=== PATIENT | female | born 1990 | race African-American/Black ===

== ENCOUNTER 2018-09-27 12:51 | Inpatient (IN) | payer OTHER ==
[2018-09-27 13:13] VITALS: BMI 27.4
--- NOTE | 2018-09-27 15:32 | HP ---
CIWA Score Nausea/Vomitin-No Nausea/No Vomiting Muscle Tremors: 4-Moderate,w/Arms Extend Anxiety: 3 Agitation: 4-Moderately Restless Paroxysmal Sweats: 3 Orientation: 0-Oriented Tacttile Disturbances: 0-None Auditory Disturbances: 0-None Visual Disturbances: 0-None Headache: 0-None Present CIWA-Ar Total Score: 14 - Admission Criteria OASAS Guidelines: Admission for Medically Managed Detox: Requires at least one of the followin. CIWA greater than 12 2. Seizures within the past 24 hours 3. Delirium tremens within the past 24 hours 4. Hallucinations within the past 24 hours 5. Acute intervention needed for co occurring medical disorder 6. Acute intervention needed for co occurring psychiatric disorder 7. Severe withdrawal that cannot be handled at a lower level of care (continued vomiting, continued diarrhea, abnormal vital signs) requiring intravenous medication and/or fluids 8. Admission ROS BHS - HPI Chief Complaint: I need to get my life back and stay sober. Allergies/Adverse Reactions: Allergies Allergy/AdvReac Type Severity Reaction Status Date / Time No Known Allergies Allergy Verified 09/27/18 15:25 History of Present Illness: pt is a 28yr old male/transgender individual seeking detox from alcohol dependence. Exam Limitations: Other (transgender) - Ebola screening Have you traveled outside of the country in the last 21 days: No Have you had contact with anyone from an Ebola affected area: No Have you been sick,other than usual withdrawal symptoms: No Do you have a fever: No - Review of Systems Constitutional: Loss of Appetite, Changes in sleep, Unintentional Wgt. Loss, Unexplained wgt Loss EENT: reports: No Symptoms Reported Respiratory: reports: No Symptoms reported Cardiac: reports: Syncope (alcohol related blackouts) GI: reports: Diarrhea, Poor Fluid Intake : reports: No Symptoms Reported Musculoskeletal: reports: No Symptoms Reported Integumentary: reports: No Symptoms Reported Neuro: reports: Tingling, Tremors Endocrine: reports: Flushing, Intolerance to Cold, Intolerance to Heat Hematology: reports: No Symptoms Reported Psychiatric: reports: Judgement Intact, Mood/Affect Appropiate, Orientated x3, Agitated, Anxious Other Systems: Reviewed and Negative Patient History - Patient Medical History Hx Anemia: No Hx Asthma: No Hx Chronic Obstructive Pulmonary Disease (COPD): No Hx Cancer: No Hx Cardiac Disorders: No Hx Congestive Heart Failure: No Hx Hypertension: No Hx Hypercholesterolemia: No Hx Pacemaker: No HX Cerebrovascular Accident: No Hx Seizures: No Hx Dementia: No Hx Diabetes: No Hx Gastrointestinal Disorders: No Hx Liver Disease: No Hx Genitourinary Disorders: No Hx Sexually Transmitted Disorders: No Hx Renal Disease (ESRD): No Hx Thyroid Disease: No Hx Human Immunodeficiency Virus (HIV): No (negative) Hx Hepatitis C: No (negative) Hx Depression: Yes (currently not on treatment) Hx Suicide Attempt: No Hx Bipolar Disorder: No Hx Schizophrenia: No Other Medical History: panic attack, anxiety - Patient Surgical History Past Surgical History: No Hx Neurologic Surgery: No Hx Cataract Extraction: No Hx Cardiac Surgery: No Hx Lung Surgery: No Hx Breast Surgery: No Hx Breast Biopsy: No Hx Abdominal Surgery: No Hx Appendectomy: No Hx Cholecystectomy: No Hx Genitourinary Surgery: No Hx Section: No Hx Orthopedic Surgery: No Anesthesia Reaction: No - PPD History Previous Implant?: Yes Documented Results: Negative w/o proof PPD to be Administered?: Yes - Reproductive History Patient is a Female of Child Bearing Age (11 -55 yrs old): No - Smoking Cessation Smoking history: Current every day smoker Have you smoked in the past 12 months: Yes Aproximately how many cigarettes per day: 10 Hx Chewing Tobacco Use: No Initiated information on smoking cessation: Yes 'Breaking Loose' booklet given: 09/27/18 - Substance & Tx. History Hx Alcohol Use: Yes Substance Use Type: Alcohol - Substances Abused Alcohol Route: Oral Frequency: Daily Amount used: 5 [place] Age of first use: 14 Date of Last Use: 09/27/18 Family Disease History - Family Disease History Family History: Denies Admission Physical Exam [facility] - Vital Signs Vital Signs: Vital Signs - 24 hr 09/27/18 13:11 Temperature 97.6 F Pulse Rate 110 H Respiratory 20 Rate Blood Pressure 144/93 - Physical General Appearance: Yes: Appropriately Dressed, Moderate Distress, Tremorous, Irritable, Sweating, Anxious HEENTM: Yes: Hearing grossly Normal, Normal Voice Respiratory: Yes: Lungs Clear, Normal Breath Sounds, No Respiratory Distress Neck: Yes: No masses,lesions,Nodules Breast: Yes: Within Normal Limits Cardiology: Yes: Regular Rhythm, Regular Rate, S1, S2 Abdominal: Yes: Normal Bowel Sounds, Non Tender, Soft Genitourinary: Yes: Within Normal Limits Back: Yes: Normal Inspection Musculoskeletal: Yes: Back pain Extremities: Yes: Normal Capillary Refill, Normal Inspection, Non-Tender, Tremors Neurological: Yes: Fully Oriented, Alert, Normal Response Integumentary: Yes: Normal Color, Diaphoresis Lymphatic: Yes: Within Normal Limits - Diagnostic (1) Alcohol dependence with uncomplicated withdrawal Current Visit: Yes Status: Chronic Cleared for Admission [facility] - Detox or Rehab [facility] Level of Care: Medically Managed Detox Regimen/Protocol: Librium [facility] Breath Alcohol Content Breath Alcohol Content: 0.270 Urine Drug Screen - Results Drug Screen Negative: Yes
[2018-09-27] MEDS ORDERED: IBUPROFEN 400 MG TABLET (FP) PO PRN (15:38)
[2018-09-27] MEDS ORDERED: P-EPHED 60MG/TRIPROLIDI 2.5MG TABLET PO PRN (15:38)
[2018-09-27] MEDS ORDERED: MAG HYDROX/AL HYDROX/SIMETH 30 ML UNIT-DOSE CUP PO PRN (15:38)
[2018-09-27] MEDS ORDERED: LOPERAMIDE HCL 2 MG CAPSULE PO PRN (15:38)
[2018-09-27] MEDS ORDERED: MENTHOL/PHENOL 1 EACH UD MM PRN (15:38)
[2018-09-27] MEDS ORDERED: NICOTINE POLACRILEX 4 MG GUM BC PRN (15:38)
[2018-09-27] MEDS ORDERED: guaiFENesin/D-METHORPHAN HB 10 ML UNIT-DOSE CUPS PO PRN (15:38)
[2018-09-27] MEDS ORDERED: hydrOXYzine PAMOATE 50 MG CAPSULE (FP) PO PRN (15:38)
[2018-09-27] MEDS ORDERED: chlordiazePOXIDE HCL 25 MG CAPSULE PO PRN (15:38)
[2018-09-27] MEDS ORDERED: MAGNESIUM HYDROX 2400MG/30ML ORAL SUSPENSION 30 ML CUP PO PRN (15:38)
[2018-09-27] MEDS ORDERED: chlordiazePOXIDE HCL 25 MG CAPSULE PO ONE (15:38)
[2018-09-27] MEDS ORDERED: ACETAMINOPHEN 325 MG TABLET (FP) PO PRN (15:38)
[2018-09-27] MEDS ORDERED: MAGNESIUM CITRATE 300 ML BOTTLE PO PRN (15:38)
[2018-09-27] MEDS: chlordiazePOXIDE HCL 25 MG CAPSULE PO SCH ×2 (17:27→22:37)
--- NOTE | 2018-09-27 17:53 | CONSULT ---
[facility] Psychiatric Consult - Data Date of interview: 09/27/18 Admission source: [facility] Identifying data: Readmission to [facility] for this 28 y/o transgender male seeking detoxification treatment, on , for alcohol dependence. Patient is isngle, without dependents, domiciled, unemployed and supported by relatives. Substance Abuse History: Discussed with patient. Confirmed current [facility] report : Smoking Cessation. Smoking history: Current every day smoker. Have you smoked in the past 12 months: Yes. Aproximately how many cigarettes per day: 10. Hx Chewing Tobacco Use: No. Initiated information on smoking cessation: Yes. ' Breaking Loose' booklet given: 09/27/18. - Substance & Tx. History. Hx Alcohol Use: Yes. Substance Use Type: Alcohol. - Substances Abused. Alcohol. Route: Oral. Frequency: Daily. Amount used: 5 [place]. Age of first use: 14. Date of Last Use: 09/27/18 Medical History: Patient endorses good general health. Psychiatric History: Patient reports a history of three psychiatric hospitalizations ([facility] [place] in [place] + [facility] in [place]). Diagnosed with Panic Disorder and MDD. Prescribed celexa 20 mg/day in the past but not adherent to the medication for months. No reported history of suicide attempts. Physical/Sexual Abuse/Trauma History: Patient denies. Additional Comment: Drug Screen is negative. Mental Status Exam - Mental Status Exam Alert and Oriented to: Time, Place, Person Cognitive Function: Good Patient Appearance: Well Groomed Mood: Nervous, Withdrawn Affect: Mood Congruent Patient Behavior: Fatigued, Cooperative Speech Pattern: Clear Voice Loudness: Normal Thought Process: Goal Oriented Thought Disorder: Not Present Hallucinations: Denies Suicidal Ideation: Denies Homicidal Ideation: Denies Insight/Judgement: Poor Sleep: Well Appetite: Good Gait/Station: Normal Psychiatric Findings - Problem List ([place] 1, 2,3) (1) Alcohol dependence with uncomplicated withdrawal Current Visit: Yes Status: Acute (2) Nicotine dependence Current Visit: Yes Status: Acute (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 On medication. - Initial Treatment Plan Initial Treatment Plan: Psychoeducation. Sleep hygiene. Detoxification in progress. AA meetings. Relapse prevention will be covered during group therapy and individual sessions. Patient insists on resuming citalopram. Celexa 10 mg po daily. Ordered. Side effects/benefits discussed with patient. Consent (verbal ) granted to . Observation.
[2018-09-27] MEDS ORDERED: MELATONIN 5 MG TABLETS PO PRN (22:00)
[2018-09-27] MEDS: THIAMINE HCL 100 MG TABLET (FP) PO SCH (22:37)
[2018-09-27 23:29] LABS: URINE APPEARANCE TURBID; URINE BILIRUBIN NEGATIVE (<2.0 mg/dL); URINE COLOR YELLOW; URINE GLUCOSE (UA) NEGATIVE (NEGATIVE); URINE KETONE NEGATIVE (NEGATIVE); URINE LEUK ESTERASE NEGATIVE (NEGATIVE); URINE NITRITE NEGATIVE (NEGATIVE); URINE PROTEIN 1+ (NEGATIVE)
[2018-09-28 00:30] LABS: AMORP URATES 2+ /hpf (NONE SEEN); CALCIUM OXALATE CRYSTALS FEW /hpf (NONE SEEN); URINE BACTERIA RARE /hpf (NONE SEEN); URINE MUCUS MANY
[2018-09-28] MEDS: chlordiazePOXIDE HCL 25 MG CAPSULE PO SCH ×4 (05:23→22:14)
[2018-09-28] MEDS: CITALOPRAM HYDROBROMIDE 10 MG TABLET (FP) PO SCH (10:18)
[2018-09-28] MEDS: NICOTINE 21 MG/24 HOURS TOPICAL PATCH TD SCH (10:18)
[2018-09-28] MEDS: PRENATAL VITAMINS W/ FOLIC ACID TABLET (FP) PO SCH (10:18)
[2018-09-28 11:15] LABS: HEMATOCRIT 45.2 % (32.4-45.2); HEMOGLOBIN 13.7 GM/dL (10.7-15.3); MCH 23.6 pg (25.7-33.7); MCHC 30.4 g/dl (32.0-36.0); MEAN CELL VOLUME 77.5 fl (80-96); MEAN PLT VOLUME 8.6 fl (7.5-11.1); PLATELET COUNT 226 K/MM3 (134-434); RBC 5.83 M/mm3 (3.60-5.2); WHITE BLOOD COUNT 4.1 K/mm3 (4.0-10.0)
[2018-09-28 11:23] LABS: ALBUMIN 3.4 g/dl (3.4-5.0); ALK PHOS 79 U/L (45-117); ANION GAP 6 MMOL/L (8-16); BILIRUBIN,TOTAL 0.6 mg/dL (0.2-1); BLOOD UREA NITROGEN 9 mg/dL (7-18); CALCIUM 8.5 mg/dL (8.5-10.1); CHLORIDE 102 mmol/L (98-107); CO2 31 mmol/L (21-32); CREATININE 0.8 mg/dL (0.55-1.3); GLUCOSE,RANDOM 81 mg/dL (74-106); POTASSIUM 3.7 mmol/L (3.5-5.1); SGOT/AST 23 U/L (15-37); SGPT/ALT 30 U/L (13-61); SODIUM 139 mmol/L (136-145); TOT PROT 6.7 g/dl (6.4-8.2)
--- NOTE | 2018-09-28 17:09 | PN ---
[facility] CIWA - CIWA Score Nausea/Vomitin-No Nausea/No Vomiting Muscle Tremors: 4-Moderate,w/Arms Extend Anxiety: 3 Agitation: 1-Slight > Activity Paroxysmal Sweats: 3 Orientation: 0-Oriented Tacttile Disturbances: 2-Mild Itch/Numbness/Burn Auditory Disturbances: 2-Mild Harshness/Frighten Visual Disturbances: 0-None Headache: 0-None Present CIWA-Ar Total Score: 15 S Progress Note (SOAP) Subjective: Tremors, Sweating, Diarrhea. Objective: PATIENT A & O X 3, OBSERVED AMBULATING ON UNIT. IN NO ACUTE DISTRESS. 09/28/18 17:04 Vital Signs Temperature 98.2 F 09/28/18 13:29 Pulse Rate 72 09/28/18 15:30 Respiratory Rate 18 09/28/18 15:30 Blood Pressure 130/77 09/28/18 13:29 O2 Sat by Pulse Oximetry (%) Laboratory Tests 09/27/18 09/28/18 09/28/18 14:32 07:30 07:30 WBC 4.1 RBC 5.83 H Hgb 13.7 Hct 45.2 MCV 77.5 L MCH 23.6 L MCHC 30.4 L RDW 15.0 Plt Count 226 MPV 8.6 Sodium 139 Potassium 3.7 Chloride 102 Carbon Dioxide 31 Anion Gap 6 L BUN 9 Creatinine 0.8 Creat Clearance w eGFR > 60 Random Glucose 81 Calcium 8.5 Total Bilirubin 0.6 AST 23 ALT 30 Alkaline Phosphatase 79 Total Protein 6.7 Albumin 3.4 Urine Color Yellow Urine Appearance Turbid Urine pH 5.0 D Ur Specific [place] 1.025 Urine Protein 1+ H Urine Glucose (UA) Negative Urine Ketones Negative Urine Blood Negative Urine Nitrite Negative Urine Bilirubin Negative Urine Urobilinogen 2.0 H Ur Leukocyte Esterase Negative Urine WBC (Auto) 2 Urine RBC (Auto) None Calcium Oxalate Crystal Few Amorphous Urates 2+ Urine Bacteria Rare Urine Mucus Many RPR Titer 09/28/18 07:30 WBC RBC Hgb Hct MCV MCH MCHC RDW Plt Count MPV Sodium Potassium Chloride Carbon Dioxide Anion Gap BUN Creatinine Creat Clearance w eGFR Random Glucose Calcium Total Bilirubin AST ALT Alkaline Phosphatase Total Protein Albumin Urine Color Urine Appearance Urine pH Ur Specific [place] Urine Protein Urine Glucose (UA) Urine Ketones Urine Blood Urine Nitrite Urine Bilirubin Urine Urobilinogen Ur Leukocyte Esterase Urine WBC (Auto) Urine RBC (Auto) Calcium Oxalate Crystal Amorphous Urates Urine Bacteria Urine Mucus RPR Titer Nonreactive LABS NOTED. Assessment: 09/28/18 17:06 WITHDRAWAL SYMPTOMS. Plan: CONTINUE DETOX. CONTINUE TO MONITOR BP.
[2018-09-28] MEDS: THIAMINE HCL 100 MG TABLET (FP) PO SCH (22:14)
[2018-09-29] MEDS: chlordiazePOXIDE HCL 25 MG CAPSULE PO SCH ×2 (06:01→10:20)
[2018-09-29] MEDS: CITALOPRAM HYDROBROMIDE 10 MG TABLET (FP) PO SCH (10:20)
[2018-09-29] MEDS: PRENATAL VITAMINS W/ FOLIC ACID TABLET (FP) PO SCH (10:20)
[2018-09-29] MEDS: NICOTINE 21 MG/24 HOURS TOPICAL PATCH TD SCH (10:20)
--- NOTE | 2018-09-29 10:47 | PN ---
S CIWA - CIWA Score Nausea/Vomitin-No Nausea/No Vomiting Muscle Tremors: 2 Anxiety: 2 Agitation: 3 Paroxysmal Sweats: 1-Minimal Palms Moist Orientation: 0-Oriented Tacttile Disturbances: 0-None Auditory Disturbances: 0-None Visual Disturbances: 0-None Headache: 2-Mild CIWA-Ar Total Score: 10 BHS Progress Note (SOAP) Subjective: tremor sweat anxiety restlessness Objective: 09/29/18 15:37 Vital Signs Temperature 96 F L 09/29/18 13:40 Pulse Rate 74 09/29/18 13:40 Respiratory Rate 18 09/29/18 13:40 Blood Pressure 145/89 09/29/18 13:40 O2 Sat by Pulse Oximetry (%) Laboratory Last Values WBC 4.1 K/mm3 (4.0-10.0) 09/28/18 07:30 RBC 5.83 M/mm3 (3.60-5.2) H 09/28/18 07:30 Hgb 13.7 GM/dL (10.7-15.3) 09/28/18 07:30 Hct 45.2 % (32.4-45.2) 09/28/18 07:30 MCV 77.5 fl (80-96) L 09/28/18 07:30 MCH 23.6 pg (25.7-33.7) L 09/28/18 07:30 MCHC 30.4 g/dl (32.0-36.0) L 09/28/18 07:30 RDW 15.0 % (11.6-15.6) 09/28/18 07:30 Plt Count 226 K/MM3 (134-434) 09/28/18 07:30 MPV 8.6 fl (7.5-11.1) 09/28/18 07:30 Sodium 139 mmol/L (136-145) 09/28/18 07:30 Potassium 3.7 mmol/L (3.5-5.1) 09/28/18 07:30 Chloride 102 mmol/L (98-107) 09/28/18 07:30 Carbon Dioxide 31 mmol/L (21-32) 09/28/18 07:30 Anion Gap 6 MMOL/L (8-16) L 09/28/18 07:30 BUN 9 mg/dL (7-18) 09/28/18 07:30 Creatinine 0.8 mg/dL (0.55-1.3) 09/28/18 07:30 Creat Clearance w eGFR > 60 (>60) 09/28/18 07:30 Random Glucose 81 mg/dL (74-106) 09/28/18 07:30 Calcium 8.5 mg/dL (8.5-10.1) 09/28/18 07:30 Total Bilirubin 0.6 mg/dL (0.2-1) 09/28/18 07:30 AST 23 U/L (15-37) 09/28/18 07:30 ALT 30 U/L (13-61) 09/28/18 07:30 Alkaline Phosphatase 79 U/L (45-117) 09/28/18 07:30 Total Protein 6.7 g/dl (6.4-8.2) 09/28/18 07:30 Albumin 3.4 g/dl (3.4-5.0) 09/28/18 07:30 Urine Color Yellow 09/27/18 14:32 Urine Appearance Turbid 09/27/18 14:32 Urine pH 5.0 (5.0-8.0) D 09/27/18 14:32 Ur Specific [place] 1.025 (1.010-1.035) 09/27/18 14:32 Urine Protein 1+ (NEGATIVE) H 09/27/18 14:32 Urine Glucose (UA) Negative (NEGATIVE) 09/27/18 14:32 Urine Ketones Negative (NEGATIVE) 09/27/18 14:32 Urine Blood Negative (NEGATIVE) 09/27/18 14:32 Urine Nitrite Negative (NEGATIVE) 09/27/18 14:32 Urine Bilirubin Negative (<2.0 mg/dL) 09/27/18 14:32 Urine Urobilinogen 2.0 mg/dL (0.2-1.0) H 09/27/18 14:32 Ur Leukocyte Esterase Negative (NEGATIVE) 09/27/18 14:32 Urine WBC (Auto) 2 /hpf (3-5) 09/27/18 14:32 Urine RBC (Auto) None /hpf (0-3) 09/27/18 14:32 Calcium Oxalate Crystal Few /hpf (NONE SEEN) 09/27/18 14:32 Amorphous Urates 2+ /hpf (NONE SEEN) 09/27/18 14:32 Urine Bacteria Rare /hpf (NONE SEEN) 09/27/18 14:32 Urine Mucus Many 09/27/18 14:32 RPR Titer Nonreactive (NONREACTIVE) 09/28/18 07:30 lab noted Assessment: 09/29/18 15:41 withdrawal sx Plan: continue detox
[2018-09-29] MEDS: chlordiazePOXIDE 5 MG CAPSULE PO SCH ×2 (17:40→22:13)
--- NOTE | 2018-09-29 19:08 | EKG ---
Test Reason : Blood Pressure : / mmHG Vent. Rate : 097 BPM Atrial Rate : 097 BPM P-R Int : 130 ms QRS Dur : 086 ms QT Int : 348 ms P-R-T Axes : 069 048 023 degrees QTc Int : 441 ms NORMAL SINUS RHYTHM POSSIBLE LEFT ATRIAL ENLARGEMENT LEFT VENTRICULAR HYPERTROPHY ABNORMAL ECG NO PREVIOUS ECGS AVAILABLE Confirmed by PERRY KEMP MD ([id number]) on 09/29/2018 7:08:01 PM Referred By: Confirmed By:PERRY KEMP MD
[2018-09-29] MEDS: THIAMINE HCL 100 MG TABLET (FP) PO SCH (22:13)
[2018-09-30] MEDS: chlordiazePOXIDE 5 MG CAPSULE PO SCH ×2 (06:11→10:32)
[2018-09-30] MEDS: PRENATAL VITAMINS W/ FOLIC ACID TABLET (FP) PO SCH (10:32)
[2018-09-30] MEDS: NICOTINE 21 MG/24 HOURS TOPICAL PATCH TD SCH (10:32)
[2018-09-30] MEDS: CITALOPRAM HYDROBROMIDE 10 MG TABLET (FP) PO SCH (10:33)
--- NOTE | 2018-09-30 13:28 | PN ---
S CIWA - CIWA Score Nausea/Vomitin-No Nausea/No Vomiting Muscle Tremors: 1-None Visible, but [place] Anxiety: 0-No Anxiety, at Ease Agitation: 0-Normal Activity Paroxysmal Sweats: 1-Minimal Palms Moist Orientation: 0-Oriented Tacttile Disturbances: 0-None Auditory Disturbances: 0-None Visual Disturbances: 0-None Headache: 1-Very Mild CIWA-Ar Total Score: 3 BHS Progress Note (SOAP) Subjective: less sweat little tremor otherwise feeling better Objective: 09/30/18 13:26 Vital Signs Temperature 96.4 F L 09/30/18 13:10 Pulse Rate 73 09/30/18 13:10 Respiratory Rate 18 09/30/18 13:10 Blood Pressure 130/83 09/30/18 13:10 O2 Sat by Pulse Oximetry (%) Laboratory Last Values WBC 4.1 K/mm3 (4.0-10.0) 09/28/18 07:30 RBC 5.83 M/mm3 (3.60-5.2) H 09/28/18 07:30 Hgb 13.7 GM/dL (10.7-15.3) 09/28/18 07:30 Hct 45.2 % (32.4-45.2) 09/28/18 07:30 MCV 77.5 fl (80-96) L 09/28/18 07:30 MCH 23.6 pg (25.7-33.7) L 09/28/18 07:30 MCHC 30.4 g/dl (32.0-36.0) L 09/28/18 07:30 RDW 15.0 % (11.6-15.6) 09/28/18 07:30 Plt Count 226 K/MM3 (134-434) 09/28/18 07:30 MPV 8.6 fl (7.5-11.1) 09/28/18 07:30 Sodium 139 mmol/L (136-145) 09/28/18 07:30 Potassium 3.7 mmol/L (3.5-5.1) 09/28/18 07:30 Chloride 102 mmol/L (98-107) 09/28/18 07:30 Carbon Dioxide 31 mmol/L (21-32) 09/28/18 07:30 Anion Gap 6 MMOL/L (8-16) L 09/28/18 07:30 BUN 9 mg/dL (7-18) 09/28/18 07:30 Creatinine 0.8 mg/dL (0.55-1.3) 09/28/18 07:30 Creat Clearance w eGFR > 60 (>60) 09/28/18 07:30 Random Glucose 81 mg/dL (74-106) 09/28/18 07:30 Calcium 8.5 mg/dL (8.5-10.1) 09/28/18 07:30 Total Bilirubin 0.6 mg/dL (0.2-1) 09/28/18 07:30 AST 23 U/L (15-37) 09/28/18 07:30 ALT 30 U/L (13-61) 09/28/18 07:30 Alkaline Phosphatase 79 U/L (45-117) 09/28/18 07:30 Total Protein 6.7 g/dl (6.4-8.2) 09/28/18 07:30 Albumin 3.4 g/dl (3.4-5.0) 09/28/18 07:30 Urine Color Yellow 09/27/18 14:32 Urine Appearance Turbid 09/27/18 14:32 Urine pH 5.0 (5.0-8.0) D 09/27/18 14:32 Ur Specific [place] 1.025 (1.010-1.035) 09/27/18 14:32 Urine Protein 1+ (NEGATIVE) H 09/27/18 14:32 Urine Glucose (UA) Negative (NEGATIVE) 09/27/18 14:32 Urine Ketones Negative (NEGATIVE) 09/27/18 14:32 Urine Blood Negative (NEGATIVE) 09/27/18 14:32 Urine Nitrite Negative (NEGATIVE) 09/27/18 14:32 Urine Bilirubin Negative (<2.0 mg/dL) 09/27/18 14:32 Urine Urobilinogen 2.0 mg/dL (0.2-1.0) H 09/27/18 14:32 Ur Leukocyte Esterase Negative (NEGATIVE) 09/27/18 14:32 Urine WBC (Auto) 2 /hpf (3-5) 09/27/18 14:32 Urine RBC (Auto) None /hpf (0-3) 09/27/18 14:32 Calcium Oxalate Crystal Few /hpf (NONE SEEN) 09/27/18 14:32 Amorphous Urates 2+ /hpf (NONE SEEN) 09/27/18 14:32 Urine Bacteria Rare /hpf (NONE SEEN) 09/27/18 14:32 Urine Mucus Many 09/27/18 14:32 RPR Titer Nonreactive (NONREACTIVE) 09/28/18 07:30 lab noted Assessment: 09/30/18 13:27 mild withdrawal sx Plan: continue detox
[2018-09-30] MEDS: chlordiazePOXIDE HCL 10 MG CAPSULE PO SCH ×2 (17:43→22:20)
[2018-09-30] MEDS: THIAMINE HCL 100 MG TABLET (FP) PO SCH (22:20)
[2018-10-01] MEDS: chlordiazePOXIDE HCL 10 MG CAPSULE PO SCH ×2 (07:36→10:12)
[2018-10-01 09:39] VITALS: BP 120/77; PULSE 92; TEMP 98.1
[2018-10-01] MEDS: CITALOPRAM HYDROBROMIDE 10 MG TABLET (FP) PO SCH (10:12)
[2018-10-01] MEDS: PRENATAL VITAMINS W/ FOLIC ACID TABLET (FP) PO SCH (10:13)
[2018-10-01] MEDS: NICOTINE 21 MG/24 HOURS TOPICAL PATCH TD SCH (10:13)
--- NOTE | 2018-10-01 14:39 | DS ---
[facility] Detox Discharge Summary Admission Date: 09/27/18 Discharge Date: 10/01/18 - History Present History: Alcohol Dependence Additional Comments: PATIENT TOLERATED DETOX REGIMEN WITHOUT ADVERSE EVENT. PATIENT ALERT AND ORIENTED X 3. IN NAD. EXT FULL ROM, AMB AD SHUKRI. PATIENT DENIES SI/HI AND IS CLINICALLY STABLE. PATIENT ENCOURAGED TO ATTEND GROUP MEETINGS TO PREVENT RELAPSE AND TO FOLLOW UP WITH PCP WITHIN ONE WEEK OF D/C. DISCHARGE INSTRUCTIONS PROVIDED BY STAFF TO PATIENT. - Physical Exam Results Vital Signs: Vital Signs Temperature 98.1 F 10/01/18 09:38 Pulse Rate 92 H 10/01/18 09:38 Respiratory Rate 17 10/01/18 09:38 Blood Pressure 120/77 10/01/18 09:38 O2 Sat by Pulse Oximetry (%) - Treatment Hospital Course: Detox Protocol Followed, Detoxed Safely, Responded well, Discharged Condition Good - Medication Discharge Medications: Ambulatory Orders Citalopram Hydrobromide [Celexa -] 20 mg PO DAILY 09/27/18 - AMA Did Patient Leave Against Medical Advice: No
== END 2018-10-01 13:12 | disposition home or self-care (01) | DRG 775 ==
LOC: EDSEX 12:51 → YASAS 12:51 → Y3N 15:52
PROC: HZ2ZZZZ Detoxification Services for Substance Abuse Treatment (ICD-10-PCS; principal; 2018-09-27)
DX: F10.230 Alcohol dependence with withdrawal, uncomplicated (principal); F10.24 Alcohol dependence with alcohol-induced mood disorder; F17.210 Nicotine dependence, cigarettes, uncomplicated; F41.9 Anxiety disorder, unspecified
CPT/HCPCS: 36415; 80053; 81003; 81015; 85027; 86593; 93005; 93010

== ENCOUNTER 2024-05-06 20:01 | Inpatient (IN) | payer OTHER ==
[2024-05-06 20:38] VITALS: BMI 32.4
[2024-05-06] MEDS ORDERED: BENZONATATE 200 MG CAPSULE PO PRN (21:00)
[2024-05-06] MEDS ORDERED: MAGNESIUM HYDROX 2400MG/30ML ORAL SUSPENSION 30 ML CUP PO PRN (21:00)
[2024-05-06] MEDS ORDERED: MAG HYDROX/AL HYDROX/SIMETH 30 ML UNIT-DOSE CUP PO PRN (21:00)
[2024-05-06] MEDS ORDERED: LOPERAMIDE HCL 2 MG CAPSULE PO PRN (21:00)
[2024-05-06] MEDS ORDERED: NICOTINE POLACRILEX 2 MG LOZENGE BC PRN (21:00)
[2024-05-06] MEDS ORDERED: IBUPROFEN 600 MG TABLET (FP) PO PRN (21:00)
[2024-05-06] MEDS ORDERED: DOCUSATE SODIUM 100 MG CAPSULE (FP) PO PRN (21:00)
[2024-05-06] MEDS ORDERED: NICOTINE POLACRILEX 2 MG GUM BUC PRN (21:00)
[2024-05-06] MEDS ORDERED: BENZOCAINE/MENTHOL (CHLORASEPTIC ) LOZENGE MM PRN (21:00)
[2024-05-06] MEDS ORDERED: ACETAMINOPHEN 325 MG TABLET (FP) PO PRN (21:00)
[2024-05-06] MEDS ORDERED: POLYETHYLENE GLYCOL (HEALTHYLAX) 3350 17 GM PACKET PO PRN (21:00)
[2024-05-06] MEDS ORDERED: IBUPROFEN 400 MG TABLET (FP) PO PRN (21:00)
[2024-05-06] MEDS: THIAMINE 100 MG TABLET PO SCH (23:06)
[2024-05-06] MEDS: MELATONIN 5 MG TABLETS PO SCH (23:07)
[2024-05-07] MEDS ORDERED: TUBERCULIN PPD 5 TU/0.1ML VIAL ID ONE (07:11)
[2024-05-07] MEDS: TUBERCULIN PPD 5 TU/0.1ML SYRINGE (IN PATIENT USE ONLY) ID ONE (07:19)
[2024-05-07 10:35] LABS: POTASSIUM 3.7 mmol/L (3.5-5.1)
[2024-05-07 10:39] LABS: HEMATOCRIT 43.2 % (35.4-49); HEMOGLOBIN 13.8 GM/dL (11.7-16.9); MCHC 31.9 g/dl (32.0-35.9); MEAN CELL VOLUME 75.3 fl (80-96); PLATELET COUNT 251 10^3/uL (134-434); RBC 5.73 M/mm3 (4.00-5.60); RDW 14.6 % (11.9-15.9); WHITE BLOOD COUNT 4.1 K/mm3 (4.0-10.0)
[2024-05-07 10:42] LABS: CALCIUM 9.1 mg/dL (8.5-10.1)
[2024-05-07 10:43] LABS: ALBUMIN 3.7 g/dl (3.4-5.0); BLOOD UREA NITROGEN 11.3 mg/dL (7-18)
[2024-05-07 10:46] LABS: CREATININE 0.7 mg/dL (0.55-1.3)
[2024-05-07 10:47] LABS: BILIRUBIN,TOTAL 0.8 mg/dL (0.2-1); TOT PROT 7.3 g/dl (6.4-8.2)
[2024-05-07] MEDS: PRENATAL VITAMINS W/ FOLIC ACID TABLET (FP) PO SCH (10:57)
[2024-05-07 12:22] LABS: SYPHILIS W/ RPR CONF NON-REACTIVE (NONREACTIVE)
[2024-05-07] MEDS: guaiFENesin 600 MG TABLET.ER (FP) PO PRN (21:55)
[2024-05-08] MEDS: hydrOXYzine PAMOATE 25 MG CAPSULE (FP) PO PRN (21:36)
[2024-05-11 22:10] LABS: PH,URINE 6.5 (5.0-8.0); URINE APPEARANCE CLEAR; URINE BILIRUBIN NEGATIVE (NEGATIVE); URINE COLOR YELLOW; URINE GLUCOSE (UA) NEGATIVE (NEGATIVE); URINE KETONE NEGATIVE (NEGATIVE); URINE LEUK ESTERASE NEGATIVE (NEGATIVE); URINE NITRITE NEGATIVE (NEGATIVE); URINE PROTEIN NEGATIVE (NEGATIVE); URINE UROBILINOGEN 0.2 mg/dL (0.2-1.0)
[2024-05-12] MEDS ORDERED: NALTREXONE HCL 50 MG TABLET PO SCH (10:45)
[2024-05-12] MEDS: amLODIPine BESYLATE 2.5 MG TABLET (FP) PO SCH (13:12)
[2024-05-12] MEDS: NALTREXONE HCL 50 MG TABLET PO ONE (13:28)
[2024-05-13] MEDS: NALTREXONE HCL 50 MG TABLET PO SCH (09:45)
[2024-05-16 17:32] LABS: MAGNESIUM 2.1 mg/dL (1.8-2.4)
[2024-05-18] MEDS: NALTREXONE MICROSPHERES (VIVITROL) 380 MG DISP.SYRIN IM ONE (11:01)
[2024-05-18] MEDS ORDERED: LACTULOSE 20 GM/30 ML UDC (FOR ORAL USE ONLY) PO PRN (16:19)
[2024-05-18] MEDS: NALTREXONE HCL 50 MG TABLET PO SCH (16:58)
[2024-05-18] MEDS: LACTULOSE 20 GM/30 ML UDC (FOR ORAL USE ONLY) PO SCH (21:47)
[2024-05-19] MEDS: amLODIPine BESYLATE 2.5 MG TABLET (FP) PO ONE ×2 (17:09→21:13)
[2024-05-20] MEDS: amLODIPine BESYLATE 5 MG TABLET (FP) PO SCH (10:03)
[2024-05-22 06:54] VITALS: RESP 18
[2024-05-23 07:11] VITALS: BP 123/86; PULSE 73; TEMP 97.2
[2024-06-01] MEDS ORDERED: NALTREXONE MICROSPHERES (VIVITROL) 380 MG DISP.SYRIN IM ONE (10:00)
== END 2024-05-23 10:30 | disposition home or self-care (01) | DRG 772 ==
LOC: YASAS 20:01 → Y3E 22:16 → Y5N 05-12 11:59
PROVIDERS: ADMIT Allergy & Immunology; ATTEND Psychiatry & Neurology Pain Medicine
PROC: HZ42ZZZ Group Counseling for Substance Abuse Treatment, Cognitive-Behavioral (ICD-10-PCS; principal; 2024-05-06)
DX: F10.20 Alcohol dependence, uncomplicated (principal); F17.210 Nicotine dependence, cigarettes, uncomplicated; F10.24 Alcohol dependence with alcohol-induced mood disorder; F41.9 Anxiety disorder, unspecified; E72.20 Disorder of urea cycle metabolism, unspecified; I10 Essential (primary) hypertension
CPT/HCPCS: 36415; 80053; 80061; 80305; 81003; 82140; 82652; 83735; 85027; 86780; 86803; 87811; 93005; 93010; J2315